=== PATIENT | female | born 1945 | race Caucasian/White ===

== ENCOUNTER 2021-03-23 12:23 | Emergency (ER) | payer MEDICARE, OTHER | END 2021-03-23 13:08 | disposition home or self-care (01) | LOC: MADERS 12:23 | DX: L02.416 Cutaneous abscess of left lower limb (principal); E78.5 Hyperlipidemia, unspecified; E78.00 Pure hypercholesterolemia, unspecified; I10 Essential (primary) hypertension | CPT/HCPCS: 99282 ==